=== PATIENT | male | born 1980 | race African-American/Black ===

== ENCOUNTER 2018-02-16 01:13 | Emergency (ER) | payer OTHER ==
--- NOTE | 2018-02-16 01:32 | EDM.PDOC ---
ED HPI GENERAL MEDICAL PROBLEM - General Stated Complaint: MEDICAL CLEARANCE Time Seen by Provider: 02/16/18 01:28 - History of Present Illness INITIAL COMMENTS - FREE TEXT/NARRATIVE: HISTORY AND PHYSICAL: History of present illness: Patient 37-year-old male with no complaints in custody of enforcement here for medical screening exam Review of systems: As per history of present illness and below otherwise all systems reviewed and negative. Past medical history: As per history of present illness and as reviewed below otherwise noncontributory. Surgical history: As per history of present illness and as reviewed below otherwise noncontributory. Social history: No reported history of drug or alcohol abuse. Family history: As per history of present illness and as reviewed below otherwise noncontributory. Physical exam: Patient refusing any physical exam and remains without complaints Diagnostics: None Therapeutics: None Impression: Medically clear for incarceration Definitive disposition and diagnosis as appropriate pending reevaluation and review of above. ED ROS GENERAL - Review of Systems Review Of Systems: ROS reveals no pertinent complaints other than HPI. ED EXAM, GENERAL - Physical Exam Exam: See Below (See dictation) Departure - Departure Time of Disposition: 01:30 Disposition: Home, Self-Care 01 Condition: Good Clinical Impression: Medical clearance for incarceration - Discharge Information Instructions: Medical Screening Exam Referrals: PCP,None [Primary Care Provider] - Additional Instructions: The following information is given to patients seen in the emergency department who are being discharged to home. This information is to outline your options for follow-up care. We provide all patients seen in our emergency department with a follow-up referral. The need for follow-up, as well as the timing and circumstances, are variable depending upon the specifics of your emergency department visit. If you don't have a primary care physician on staff, we will provide you with a referral. We always advise you to contact your personal physician following an emergency department visit to inform them of the circumstance of the visit and for follow-up with them and/or the need for any referrals to a consulting specialist. The emergency department will also refer you to a specialist when appropriate. This referral assures that you have the opportunity for followup care with a specialist. All of these measure are taken in an effort to provide you with optimal care, which includes your followup. Under all circumstances we always encourage you to contact your private physician who remains a resource for coordinating your care. When calling for followup care, please make the office aware that this follow-up is from your recent emergency room visit. If for any reason you are refused follow-up, please contact the [facility] emergency department at and asked to speak to the emergency department charge nurse. Follow-up primary medical doctor return as needed as discussed
== END 2018-02-16 01:30 | disposition home or self-care (01) ==
LOC: MW.ED 01:13
DX: Z02.89 Encounter for other administrative examinations (principal)
CPT/HCPCS: 99281; 99282